=== PATIENT | female | born 1940 | race Caucasian/White ===

== ENCOUNTER 2019-07-13 15:58 | Observation (INO) ==
--- NOTE | 2019-07-13 16:24 | DR.SOBA ---
HPI Time Seen Time Seen by Provider: 07/13/19 16:14 Primary Care Physician Primary Care Physician: kira HPI Comment HPI Comment: SOB, wheezing Complaints Chief Complaint Doctors Comments: here w sister. She lives alone, has asthma. I think she may be a little demented. Not sure how long she has been like this. She thinks maybe a week. Has nebs and inhalers at home. No steroids per sister. Chief Complaint:: pt states" I BEEN WHEEZING AND SOB I'M COUGHING UP THICK SPUTUM" Reviewed Nurses Notes Reviewed: Yes Source History Provided: Patient and Family Member Mode of Arrival Mode of Arrival: Ambulatory Timing Onset of Chief Complaint: 07/10/19 Context Onset:: At Rest PE Risk Factors:: Immobilization History of:: Asthma; denies COPD and DVT/PE Currently on:: Inhaled Bronchodilators Prehospital Care:: None Modifying Factors Worsens:: Nothing Improves:: Nothing Associated Signs and Symptoms Associated Signs and Symptoms: Wheeze and Cough; denies Fever, Hemoptysis and Chest Pain If Cough Cough: Green PMH PMH Past Medical History: Yes Past Medical History: Anxiety, Asthma, Diabetes and Hypertension Past Surgical History: Yes Surgical History: Joint Replacement and Tonsillectomy Family History History of Family Medical Conditions: Yes Family Medical History: Diabetes Mellitus, Cancer and Hypertension Social History Does patient currently use any type of tobacco product: No Have you used tobacco products in the last 12 months: No Do you use any recreational Drugs:: No Lives With: Alone Lives Where: Home infectious screening In the last 2 months have you had wt loss of >10#?: NO Have you had fever, night sweats or hemotysis?: No Have you traveled outside the country in the last 6 months?: No Isolation: Standard ROS Review of Systems Constitutional: No Symptoms Reported; negative Fever ENTM: negative Nose Congestion Respiratoy: See HPI, Productive Cough, Short of Breath and Wheezing; negative Hemoptysis Cardiovascular: No Symptoms Reported Gastrointestinal/Abdominal: No Symptoms Reported Musculoskeletal: No Symptoms Reported Integumentary: No Symptoms Reported All Other Systems: Reviewed and Negative PE Vital Signs Vitals: Temperature 98.6 F Pulse Rate 104 Respiratory Rate 22 Blood Pressure 176/75 O2 Sat by Pulse Oximetry 92 General Limitations: Other (some dementia) General Appearance: Alert and Other (wheezing, dyspneic) Eyes Eye exam: Normal Appearance and EOMI; negative Conjunctival Injection ENT ENT Exam: Mucous Membranes Dry Neck Neck Exam: Normal Inspection and Full ROM; negative Meningismus and Lymphadenopathy Respiratory Respiratory Exam: Prolonged Expiratory Phase Respiratory Exam: Bilateral: Wheezing, Left: Wheezing, Right: Wheezing, Upper: Wheezing and Lower: Wheezing Cardiovascular Cardiovascular Exam: Regular Rate, Normal Rhythm and Normal Heart Sounds Abdominal Exam Abdominal Exam: Soft; negative Tenderness Extremities Extremities Exam: negative Edema and Calf Tenderness Back Back Exam: Normal Inspection Neurologic Neurological Exam: Alert and Oriented X3 Skin Skin Exam: Warm, Dry and Normal Color MDM Differential Diagnosis Differential Diagnosis: Asthma, Bronchitis, Pneumonia, Pulmonary embolism, Respiratory Failure and Respiratory Insufficiency ROR Labs Reviewed Laboratory Results Reviewed?: Yes Result Diagrams: 07/13/19 16:48 07/13/19 16:48 Laboratory: WBC 10.4 X10^3/uL (3.6-10.0) H 07/13/19 16:48 RBC 4.36 X10^6/uL (3.5-5.4) 07/13/19 16:48 Hgb 13.3 g/dL (12.0-16.0) 07/13/19 16:48 Hct 39.7 % (36.0-47.0) 07/13/19 16:48 MCV 91.2 fL (80.0-100.0) 07/13/19 16:48 MCH 30.6 pg (27.0-34.0) 07/13/19 16:48 MCHC 33.5 g/dL (33.0-35.0) 07/13/19 16:48 RDW 12.8 % (11.6-16.5) 07/13/19 16:48 Plt Count 339 X10^3/uL (150.0-450.0) 07/13/19 16:48 MPV 8.2 fL (7.4-11.0) 07/13/19 16:48 Neut % (Auto) 66.8 % (42.0-75.0) 07/13/19 16:48 Lymph % (Auto) 15.8 % (21.0-51.0) L 07/13/19 16:48 [place] % (Auto) 16.1 % (0.0-13.0) H 07/13/19 16:48 Eos % (Auto) 0.8 % (0.9-2.9) L 07/13/19 16:48 Baso % (Auto) 0.5 % (0.2-1.0) 07/13/19 16:48 Neut # (Auto) 7.0 x10^3/uL (2.2-4.8) H 07/13/19 16:48 Lymph # (Auto) 1.6 X10^3/uL (1.3-2.9) 07/13/19 16:48 [place] # (Auto) 1.7 x10^3/uL (0.3-0.8) H 07/13/19 16:48 Eos # (Auto) 0.1 x10^3/uL (0.0-0.2) 07/13/19 16:48 Baso # (Auto) 0.1 X10^3/uL (0.0-0.1) 07/13/19 16:48 Absolute Nucleated RBC 0.0 /100WBC 07/13/19 16:48 D-Dimer 1190 ng/mL (0-400) H* 07/13/19 16:48 Sample Site Rrad 07/13/19 17:04 ABG pH 7.420 (7.35-7.45) 07/13/19 17:04 ABG pCO2 43.0 mmHg (35.0-45.0) 07/13/19 17:04 ABG pO2 68.0 mmHg (80.0-100.0) L 07/13/19 17:04 ABG HCO3 27.9 mmol/L (22-26) H 07/13/19 17:04 ABG O2 Saturation 94.0 % (90-100) 07/13/19 17:04 ABG Base Excess 3.0 mmol/L (-2.0-2.0) H 07/13/19 17:04 Filippo Test Pos 07/13/19 17:04 A-a Gradient 78.0 mmHg 07/13/19 17:04 FiO2 28.0 07/13/19 17:04 Blood Gas Comments Pt maci well elj 07/13/19 17:04 Sodium 139 mmol/L (136-145) 07/13/19 16:48 Corrected Sodium 141 mmol/L (136-145) 07/13/19 16:48 Potassium 3.9 mmol/L (3.5-5.1) 07/13/19 16:48 Chloride 103 mmol/L (98-107) 07/13/19 16:48 Carbon Dioxide 26.3 mmol/L (21-32) 07/13/19 16:48 BUN 11 mg/dL (7-18) 07/13/19 16:48 Creatinine 1.16 mg/dL (0.55-1.02) H 07/13/19 16:48 Est GFR (MDRD) Af Amer 58 (>60) L 07/13/19 16:48 Est GFR (MDRD) Non-Af 48 (>60) L 07/13/19 16:48 Glucose 189 mg/dL (65-99) H 07/13/19 16:48 POC Glucose (mg/dL) 183 mg/dL (65-99) H 07/13/19 16:29 Calcium 11.9 mg/dL (8.5-10.1) H 07/13/19 16:48 Corrected Calcium 12.5 mg/dL (8.5-10.1) H 07/13/19 16:48 Magnesium 1.6 mg/dL (1.7-2.9) L 07/13/19 16:48 Total Bilirubin 0.50 mg/dL (0.2-1.0) 07/13/19 16:48 AST 43 Units/L (15-37) H 07/13/19 16:48 ALT 56 Units/L (12-78) 07/13/19 16:48 Alkaline Phosphatase 68 Units/L (46-116) 07/13/19 16:48 Creatine Kinase 109 Units/L (26-192) 07/13/19 16:48 CK-MB (CK-2) 1.4 ng/mL (0-4.0) 07/13/19 16:48 CK/CKMB % Calc 1.3 % (<4) 07/13/19 16:48 Troponin I < 0.02 ng/mL (0-1.5) 07/13/19 16:48 Total Protein 6.9 g/dL (6.4-8.2) 07/13/19 16:48 Albumin 3.2 g/dL (3.4-5.0) L 07/13/19 16:48 Globulin 3.7 g/dL (2.5-4.5) 07/13/19 16:48 Albumin/Globulin Ratio 0.9 Ratio (1.1-2.1) L 07/13/19 16:48 Other Results Comments: d-dimer high, Mg a little low. XRAY XRAY Interpreted by: Radiologist XRAY Findings: pCXR nothing acute EKG Rate: [address]: Normal Rhythm: NSR and ST Block: None Hypertrophy: None ST: Normal Opioid Opioid Risk Tool Age ([place] box if 16-45): No History of Preadolescent Sexual Abuse: No Total: 0 Total Score Risk Category: Low Risk Copyright: [facility] predicting aberrant behaviors Diagnosis Discharge Problem: Hypoxia Pneumonia Qualifiers: Pneumonia type: due to unspecified organism Laterality: bilateral Lung location: unspecified part of lung Qualified Code(s): J18.9 - Pneumonia, unspecified organism Asthma exacerbation Qualifiers: Asthma severity: moderate Asthma persistence: persistent Qualified Code(s): J45.41 - Moderate persistent asthma with (acute) exacerbation Instructions Forms: Excuse From Work Patient Portal ADDITIONAL NOTES Additional Notes Additional Notes: Pt to be admitted for PN, dyspnea, asthma Dr. Johnson
[2019-07-13] MEDS ORDERED: DUONEB 0.5 MG/3 MG (3 mL) NEB ONE ×2 (16:27→16:57)
[2019-07-13] MEDS ORDERED: SOLU-Medrol 125 MG VIAL IVP ONE (16:30)
[2019-07-13] MEDS ORDERED: SOLU-Medrol 125 MG VIAL ONE (16:59)
[2019-07-13 17:00] LABS: BASOPHILS # (AUTO) 0.1 X10^3/uL (0.0-0.1); BASOPHILS % (AUTO) 0.5 % (0.2-1.0); EOSINOPHILS # (AUTO) 0.1 x10^3/uL (0.0-0.2); EOSINOPHILS % (AUTO) 0.8 % (0.9-2.9); HEMATOCRIT 39.7 % (36.0-47.0); HEMOGLOBIN 13.3 g/dL (12.0-16.0); LYMPHOCYTES # (AUTO) 1.6 X10^3/uL (1.3-2.9); LYMPHOCYTES % (AUTO) 15.8 % (21.0-51.0); MEAN CORPUSCULAR HEMOGLOBIN 30.6 pg (27.0-34.0); MEAN CORPUSCULAR HGB CONC 33.5 g/dL (33.0-35.0); MEAN CORPUSCULAR VOLUME 91.2 fL (80.0-100.0); MEAN PLATELET VOLUME 8.2 fL (7.4-11.0); MONOCYTES # (AUTO) 1.7 x10^3/uL (0.3-0.8); MONOCYTES % (AUTO) 16.1 % (0.0-13.0); NEUTROPHILS % (AUTO) 66.8 % (42.0-75.0); PLATELET COUNT 339 X10^3/uL (150.0-450.0); RED BLOOD COUNT 4.36 X10^6/uL (3.5-5.4); RED CELL DISTRIBUTION WIDTH 12.8 % (11.6-16.5); WHITE BLOOD COUNT 10.4 X10^3/uL (3.6-10.0)
[2019-07-13 17:14] LABS: ABG ALLEN TEST POS; ABG HCO3 27.9 mmol/L (22-26)
[2019-07-13 17:23] LABS: BLOOD UREA NITROGEN 11 mg/dL (7-18); CALCIUM 11.9 mg/dL (8.5-10.1); CARBON DIOXIDE 26.3 mmol/L (21-32); CHLORIDE 103 mmol/L (98-107); COR NA(FOR HYPERGLY) 141 mmol/L (136-145); CREATININE 1.16 mg/dL (0.55-1.02); SODIUM 139 mmol/L (136-145); TROPONIN I < 0.02 ng/mL (0-1.5); eGFR NON BLACK RACES 48 (>60)
[2019-07-13 17:28] LABS: ALANINE AMINOTRANSFERASE 56 Units/L (12-78); ALBUMIN 3.2 g/dL (3.4-5.0); ALKALINE PHOSPHATASE 68 Units/L (46-116); ASPARTATE AMINO TRANSFERASE 43 Units/L (15-37); CKMB % 1.3 % (<4); COR CA(FOR HYPOALB) 12.5 mg/dL (8.5-10.1); CREATINE KINASE 109 Units/L (26-192); CREATINE KINASE MB 1.4 ng/mL (0-4.0); MAGNESIUM 1.6 mg/dL (1.7-2.9); TOTAL PROTEIN 6.9 g/dL (6.4-8.2)
--- NOTE | 2019-07-13 17:37 | RAD ---
HISTORY:Shortness of breathStudy: Single view chestComparison:NoneFindings:Single portable views limited by underpenetration. Nonspecific interstitial prominence is present. No focal infiltrate, effusion or pneumothorax identified.Cardiac silhouette is upper limits of normal.The soft tissues are intact .IMPRESSION:1. No acute cardiopulmonary abnormality.Electronically signed by: MANDEEP LIVINGSTON (Jul 13, 2019 17:33:45)
[2019-07-13] MEDS ORDERED: MAGNESIUM SULFATE 1 GRAM/100 mL PREMIX 1 G/100 ML BAG IV ONE (18:19)
[2019-07-13] MEDS ORDERED: MAGNESIUM SULFATE 50% INJ VIAL ONE (18:23)
[2019-07-13] MEDS ORDERED: NS 100 ML IV 100 ML IV ONE (18:23)
--- NOTE | 2019-07-13 18:56 | CT ---
HISTORYelevated ddimerSTUDYCTA CHEST W/WO CONTCOMPARISONNoneTECHNIQUEMultiple axial images of the chest were obtained from the thoracic inlet to the upper abdomen after the administration of IV contrast. Coronal sagittal reformatted 3 dimensional MIP images were also submitted utilizing CTA protocol. Dose reduction techniques including Automated Exposure Control (AEC) and adjustment of mA and kV were utilized.FINDINGSMildly enlarged size lymph nodes are seen within the prevascular and pretracheal spaces of the mediastinum. Mild pericardial thickening versus a small pericardial effusion are noted. Atherosclerotic changes are seen within the visualized coronary arteries and aorta. Timing of the contrast bolus is somewhat suboptimal. Allowing for streak artifact no definite large focal well circumscribed filling defects are appreciated within the main pulmonary arteries. Evaluation of the more distal branches is limited. Patchy airspace opacities are demonstrated bilaterally and may reflect atelectasis however multifocal infiltrate or other underlying process cannot be excluded. Recommend clinical correlation and short interval follow-up within 2-3 months for further evaluation. No CT evidence of pneumothorax or pleural effusion is identified. Visualized liver is prominent in appearance. Approximate 3.5 x 3.7 centimeter low-attenuation lesion is seen within the left adrenal possibly representing an adenoma. If no comparison studies are available follow-up nonemergent outpatient multiphase CT and/or MRI may be performed for further evaluation. Small calculi are seen within the visualized right kidney.IMPRESSIONNo definite CT evidence of pulmonary embolism appreciated as noted above.Patchy airspace opacities bilaterally as discussed above. Correlate clinically.Other findings as noted above.Electronically signed by: ADE CHAVIRA (Jul 13, 2019 18:54:29)
[2019-07-13] MEDS ORDERED: LEVAQUIN PREMIX IV 750 MG 750 MG/150 ML BAG IV SCH (20:00)
[2019-07-13] MEDS ORDERED: NS 1000 ML 1,000 ML ONE (20:06)
[2019-07-13] MEDS ORDERED: LEVAQUIN PREMIX IV 750 MG 750 MG/150 ML BAG IV ONE (20:06)
[2019-07-13] MEDS: NS 1000 ML 1,000 ML IV SCH (20:15)
[2019-07-13 21:41] VITALS: BMI 43.7
[2019-07-13] MEDS: HumuLIN R SC PRN (22:40)
[2019-07-13] MEDS: DUONEB 0.5 MG/3 MG (3 mL) NEB SCH (23:32)
[2019-07-14] MEDS: SOLU-Medrol 125 MG VIAL IVP SCH ×3 (00:10→12:55)
[2019-07-14] MEDS: NS 1000 ML 1,000 ML IV SCH ×2 (05:13→09:04)
[2019-07-14] MEDS: DUONEB 0.5 MG/3 MG (3 mL) NEB SCH (05:19)
[2019-07-14] MEDS: HumuLIN R SC PRN ×4 (06:14→20:59)
[2019-07-14 06:26] LABS: BASOPHILS % (AUTO) 0.2 % (0.2-1.0); HEMATOCRIT 40.9 % (36.0-47.0); HEMOGLOBIN 13.7 g/dL (12.0-16.0); LYMPHOCYTES # (AUTO) 1.5 X10^3/uL (1.3-2.9); LYMPHOCYTES % (AUTO) 14.1 % (21.0-51.0); MEAN CORPUSCULAR HEMOGLOBIN 30.7 pg (27.0-34.0); MEAN CORPUSCULAR HGB CONC 33.4 g/dL (33.0-35.0); MEAN CORPUSCULAR VOLUME 91.8 fL (80.0-100.0); MEAN PLATELET VOLUME 8.5 fL (7.4-11.0); MONOCYTES # (AUTO) 0.4 x10^3/uL (0.3-0.8); MONOCYTES % (AUTO) 3.7 % (0.0-13.0); NEUTROPHILS # (AUTO) 8.8 x10^3/uL (2.2-4.8); PLATELET COUNT 351 X10^3/uL (150.0-450.0); RED BLOOD COUNT 4.45 X10^6/uL (3.5-5.4); RED CELL DISTRIBUTION WIDTH 13.1 % (11.6-16.5); WHITE BLOOD COUNT 10.8 X10^3/uL (3.6-10.0)
[2019-07-14 07:03] LABS: CALCIUM 12.2 mg/dL (8.5-10.1); CARBON DIOXIDE 23.6 mmol/L (21-32); CREATININE 1.25 mg/dL (0.55-1.02); MAGNESIUM 1.6 mg/dL (1.7-2.9); TOTAL PROTEIN 8.2 g/dL (6.4-8.2)
[2019-07-14 08:51] LABS: ABG BASE EXCESS 0.1 mmol/L (-2.0-2.0); ABG HCO3 24.7 mmol/L (22-26)
[2019-07-14] MEDS: ZESTRIL TAB 10 MG PO SCH ×2 (09:04→09:06)
[2019-07-14] MEDS: EFFEXOR XR 150 MG CAP PO SCH ×2 (09:05→09:08)
[2019-07-14] MEDS: NORVASC TAB 10 MG PO SCH (09:05)
[2019-07-14] MEDS: LOVENOX INJ 40 MG SYR SC SCH (09:06)
[2019-07-14] MEDS ORDERED: TUSSIONEX PENNKINETIC SUSP PO PRN (09:06)
--- NOTE | 2019-07-14 09:15 | DR.H&P ---
H&P - History & Physical for Day of: H&P Date: 07/13/19 - Chief Complaint Chief Complaint: SOB - History of Present Illness History of Present Illness: PT IS 79 WF ER ADMISSION AFTER PRESENTING WITH CO SOB. PT HAS PMH OF ASTHMA AND REPORTS SHE HAS INHALERS AT HOME. PT SISTER IS NEXT OF KIN, REPORTING PT HAS SOME DEGREE OF DEMENTIA. PT REPORTS SHE HAS BEEN HAVING SOB FOR SEVERAL WEEKS. PT HAD "HEART TESTS" AT [facility] IN [place] WITH PENDING F/U. PT HAS PMH OF DM, HTN, OA. PT ADMITTED FOR TREATMENT OF SOB, PNEUMONIA. - Past Medical History Past Medical History: Hypertension, Diabetes, Anxiety, Asthma - Past Surgical History Surgical History: Joint Replacement, Tonsillectomy - Family History Family Medical History: Diabetes Mellitus, Cancer, Hypertension - Social History Does patient currently use any type of tobacco product: No Have you used tobacco products in the last 12 months: No Type of Tobacco Use: None Alcohol Use: None Drug Use: None - Medications Home Medications: No Known Drug Allergies Allergy (Verified 07/13/19 16:07) CONTINUE taking the following medications amlodipine 10 mg PO DAILY 07/13/19 [History] bisoprolol-hydrochlorothiazide 1 tab PO DAILY 07/13/19 [History] lisinopril 40 mg PO DAILY 07/13/19 [History] loratadine 10 mg PO DAILY 07/13/19 [History] metformin 1,000 mg PO BID 07/13/19 [History] montelukast 1 mg PO DAILY 07/13/19 [History] naproxen 500 mg PO BID 07/13/19 [History] pioglitazone 15 mg PO DAILY 07/13/19 [History] venlafaxine 150 mg PO DAILY 07/13/19 [History] - Review of Systems Constitutional: Malaise Eyes: No Symptoms Reported ENT: No Symptoms Reported Respiratory: Cough, Shortness of Breath, Sputum, Wheezing Cardiovascular: denies: Edema Gastrointestinal: No Symptoms Reported Genitourinary: No Symptoms Reported Musculoskeletal: No Symptoms Reported Skin: No Symptoms Reported Neurological: No Symptoms Reported - Physical Exam Vital Signs: Temperature 98.3 F Pulse Rate [Left Brachial] 94 Pulse Rate 103 Respiratory Rate 20 Blood Pressure [Left Arm] 171/79 Blood Pressure 176/75 O2 Sat by Pulse Oximetry 95 Oriented: Person, Place Eyes: Normal Ear: Normal Nose: Normal Throat: Dry Respiratory: Wheezes Throughout, RLL Diminished, LLL Diminished Cardiovascular: Normal : Normal Auscultation: Bowel Sounds: Normal Palpation: Normal Tenderness: Normal Skin: Normal Musculoskeletal: Left, Ankle, Tender. negative: Swelling Psychiatric: Anxiety Affect: Anxious Speech Pattern: Clear, Appropriate (POOR HISTORIAN, CONFUSION REGARDING EVENTS UP TO ADMISSION) - Assessment/Plan (1) Pneumonia Qualifiers: Pneumonia type: due to unspecified organism Laterality: bilateral Lung location: unspecified part of lung Qualified Code(s): J18.9 - Pneumonia, unspecified organism Status: Acute Plan: ADMIT, [facility] PROTOCOL. IV SOLU MEDROL GIVEN IN ER, DUO NEBS. RESP THERAPY, SPUTUM CUTLURE. IV ATBS, CARDIAC MONITORING AND EKG. ABG ON ADMISSION (2) Asthma exacerbation Qualifiers: Asthma severity: moderate Asthma persistence: persistent Qualified C ode(s): J45.41 - Moderate persistent asthma with (acute) exacerbation Status: Acute (3) Diabetes Status: Acute (4) Hypertension Status: Acute - Allergies Allergies/Adverse Reactions: Allergies Allergy/AdvReac Type Severity Reaction Status Date / Time No Known Drug Allergies Allergy Verified 07/13/19 16:07
--- NOTE | 2019-07-14 09:21 | PCM.PROG ---
Progress Note - Progress Note for Day of Date of Exam: 07/14/19 - Subjective Subjective: PT IS 79 WF ER ADMISSION LATE SHASHANK EVENING WITH PNEUMONIA AND ASTHMA EXACERBATION. PT IS CURRENTLY RECEIVING IV STEROIDS, DUO NEBS, IV ATBX. PT ENCOURAGED TO COLLECT A SPUTUM SPECIMEN. PT CONTINUES WITH CO COUGH. PT HAD DIFFUSE EXPIRATORY WHEEZING ON EXAM, NO INSPIRATORY WHEEZING THIS AM. PLAN TO ADD BUDESONIDE NEB AND ROBITUSSIN. HOME MEDICATION RESUMED. PT ON SSI COVERAGE TO BS. - Past Medical Family Social History Past Med/Fam/Surg Hx: No changes since H&P Allergies: Allergies No Known Drug Allergies Allergy (Verified 07/13/19 16:07) - Vital Signs and I&O's Vital Signs: Temperature 98.3 F Pulse Rate [Left Brachial] 94 Pulse Rate 103 Respiratory Rate 20 Blood Pressure [Left Arm] 171/79 Blood Pressure 176/75 O2 Sat by Pulse Oximetry 95 Intake and Output: Intake & Output 07/11/19 07/12/19 07/13/19 07/14/19 11:59 11:59 11:59 11:59 Intake Total 1999 Balance 1999 - Physical Exam Oriented: Person, Place Eyes: Normal Ear: Normal Nose: Normal Throat: Dry Respiratory: Wheezes, Rhonchi Cardiovascular: Normal : Normal Auscultation: Bowel Sounds: Normal Tenderness: Normal Skin: Normal Musculoskeletal: Left, Ankle, Tender. negative: Swelling Psychiatric: Anxiety Affect: Anxious Speech Pattern: Clear, Appropriate (POOR HISTORIAN, CONFUSION REGARDING EVENTS UP TO ADMISSION) - Laboratory and Diagnostics Result Diagrams: 07/14/19 05:55 07/14/19 05:55 Labs: Laboratory WBC 10.8 X10^3/uL (3.6-10.0) H 07/14/19 05:55 RBC 4.45 X10^6/uL (3.5-5.4) 07/14/19 05:55 Hgb 13.7 g/dL (12.0-16.0) 07/14/19 05:55 Hct 40.9 % (36.0-47.0) 07/14/19 05:55 MCV 91.8 fL (80.0-100.0) 07/14/19 05:55 MCH 30.7 pg (27.0-34.0) 07/14/19 05:55 MCHC 33.4 g/dL (33.0-35.0) 07/14/19 05:55 RDW 13.1 % (11.6-16.5) 07/14/19 05:55 Plt Count 351 X10^3/uL (150.0-450.0) 07/14/19 05:55 MPV 8.5 fL (7.4-11.0) 07/14/19 05:55 Neut % (Auto) 82.0 % (42.0-75.0) H 07/14/19 05:55 Lymph % (Auto) 14.1 % (21.0-51.0) L 07/14/19 05:55 [place] % (Auto) 3.7 % (0.0-13.0) 07/14/19 05:55 Eos % (Auto) 0.0 % (0.9-2.9) L 07/14/19 05:55 Baso % (Auto) 0.2 % (0.2-1.0) 07/14/19 05:55 Neut # (Auto) 8.8 x10^3/uL (2.2-4.8) H 07/14/19 05:55 Lymph # (Auto) 1.5 X10^3/uL (1.3-2.9) 07/14/19 05:55 [place] # (Auto) 0.4 x10^3/uL (0.3-0.8) 07/14/19 05:55 Eos # (Auto) 0.0 x10^3/uL (0.0-0.2) 07/14/19 05:55 Baso # (Auto) 0.0 X10^3/uL (0.0-0.1) 07/14/19 05:55 Absolute Nucleated RBC 0.0 /100WBC 07/14/19 05:55 D-Dimer 1190 ng/mL (0-400) H* 07/13/19 16:48 Sample Site Left brachial 07/14/19 08:43 ABG pH 7.410 (7.35-7.45) 07/14/19 08:43 ABG pCO2 39.0 mmHg (35.0-45.0) 07/14/19 08:43 ABG pO2 67.0 mmHg (80.0-100.0) L 07/14/19 08:43 ABG HCO3 24.7 mmol/L (22-26) 07/14/19 08:43 ABG O2 Saturation 93.0 % (90-100) 07/14/19 08:43 ABG Base Excess 0.1 mmol/L (-2.0-2.0) 07/14/19 08:43 Filippo Test Na 07/14/19 08:43 A-a Gradient 34.0 mmHg 07/14/19 08:43 FiO2 21.0 07/14/19 08:43 Blood Gas Comments Alhaji well aw 07/14/19 08:43 Sodium 137 mmol/L (136-145) 07/14/19 05:55 Corrected Sodium 142 mmol/L (136-145) 07/14/19 05:55 Potassium 4.1 mmol/L (3.5-5.1) 07/14/19 05:55 Chloride 101 mmol/L (98-107) 07/14/19 05:55 Carbon Dioxide 23.6 mmol/L (21-32) 07/14/19 05:55 BUN 14 mg/dL (7-18) 07/14/19 05:55 Creatinine 1.25 mg/dL (0.55-1.02) H 07/14/19 05:55 Est GFR (MDRD) Af Amer 53 (>60) L 07/14/19 05:55 Est GFR (MDRD) Non-Af 44 (>60) L 07/14/19 05:55 Glucose 298 mg/dL (65-99) H 07/14/19 05:55 POC Glucose (mg/dL) 183 mg/dL (65-99) H 07/13/19 16:29 Calcium 12.2 mg/dL (8.5-10.1) H 07/14/19 05:55 Corrected Calcium 13.0 mg/dL (8.5-10.1) H 07/14/19 05:55 Magnesium 1.6 mg/dL (1.7-2.9) L 07/14/19 05:55 Total Bilirubin 0.40 mg/dL (0.2-1.0) 07/14/19 05:55 AST 64 Units/L (15-37) H 07/14/19 05:55 ALT 65 Units/L (12-78) 07/14/19 05:55 Alkaline Phosphatase 67 Units/L (46-116) 07/14/19 05:55 Creatine Kinase 109 Units/L (26-192) 07/13/19 16:48 CK-MB (CK-2) 1.4 ng/mL (0-4.0) 07/13/19 16:48 CK/CKMB % Calc 1.3 % (<4) 07/13/19 16:48 Troponin I < 0.02 ng/mL (0-1.5) 07/13/19 16:48 Total Protein 8.2 g/dL (6.4-8.2) 07/14/19 05:55 Albumin 3.0 g/dL (3.4-5.0) L 07/14/19 05:55 Globulin 5.2 g/dL (2.5-4.5) H 07/14/19 05:55 Albumin/Globulin Ratio 0.6 Ratio (1.1-2.1) L 07/14/19 05:55 - Plan (1) Pneumonia Status: Acute Qualifiers: Pneumonia type: due to unspecified organism Laterality: bilateral Lung location: unspecified part of lung Qualified Code(s): J18.9 - Pneumonia, unspecified organism Plan: [facility] PROT[facility]OL. IV SOLU MEDROL GIVEN IN ER, DUO NEBS. RESP THERAPY, SPUTUM CUTLURE. IV ATBS, CARDIAC MONITORING AND EKG. ABG ON ADMISSION (2) Asthma exacerbation Status: Acute Qualifiers: Asthma severity: moderate Asthma persistence: persistent Qualified Code(s): J45.41 - Moderate persistent asthma with (acute) exacerbation (3) Diabetes Status: Acute (4) Hypertension Status: Acute
[2019-07-14] MEDS ORDERED: PULMICORT NEB TX 0.5 MG NEB ONE (09:44)
[2019-07-14] MEDS: PULMICORT NEB TX 0.5 MG NEB SCH ×2 (09:50→20:33)
[2019-07-14] MEDS: ROBITUSSIN DM PO SCH ×4 (12:54→20:58)
[2019-07-14] MEDS: CLARITIN PO SCH (12:59)
[2019-07-14] MEDS: XOPENEX 1.25 MG/3 ML NEBULE NEB SCH ×3 (13:49→20:33)
[2019-07-14] MEDS ORDERED: LEVAQUIN PREMIX IV 750 MG 750 MG/150 ML BAG IV SCH (21:00)
[2019-07-15] MEDS: NS 1000 ML 1,000 ML IV SCH (01:16)
[2019-07-15] MEDS ORDERED: ULTRAM PO PRN (01:47)
[2019-07-15] MEDS ORDERED: BISOPROLOL HYDROCHLOROTHIAZIDE PO SCH (09:00)
[2019-07-15] MEDS: ZESTRIL TAB 10 MG PO SCH (10:49)
[2019-07-15] MEDS: ROBITUSSIN DM PO SCH ×4 (10:49→21:03)
[2019-07-15] MEDS: NORVASC TAB 10 MG PO SCH (10:49)
[2019-07-15] MEDS: ZEBETA TAB 5 MG PO SCH (10:49)
[2019-07-15] MEDS: ZIAC 5/6.25 MG PO SCH (10:50)
[2019-07-15] MEDS: CLARITIN PO SCH (10:50)
[2019-07-15] MEDS: LOVENOX INJ 40 MG SYR SC SCH (10:51)
[2019-07-15] MEDS: EFFEXOR XR 150 MG CAP PO SCH (10:51)
[2019-07-15 11:30] LABS: BASOPHILS % (AUTO) 0.2 % (0.2-1.0); HEMATOCRIT 39.7 % (36.0-47.0); HEMOGLOBIN 12.7 g/dL (12.0-16.0); LYMPHOCYTES # (AUTO) 1.6 X10^3/uL (1.3-2.9); LYMPHOCYTES % (AUTO) 11.3 % (21.0-51.0); MEAN CORPUSCULAR HEMOGLOBIN 29.2 pg (27.0-34.0); MEAN CORPUSCULAR VOLUME 91.3 fL (80.0-100.0); MONOCYTES # (AUTO) 1.8 x10^3/uL (0.3-0.8); MONOCYTES % (AUTO) 12.9 % (0.0-13.0); NEUTROPHILS # (AUTO) 10.5 x10^3/uL (2.2-4.8); NEUTROPHILS % (AUTO) 75.6 % (42.0-75.0); PLATELET COUNT 375 X10^3/uL (150.0-450.0); RED BLOOD COUNT 4.35 X10^6/uL (3.5-5.4); RED CELL DISTRIBUTION WIDTH 12.9 % (11.6-16.5); WHITE BLOOD COUNT 13.9 X10^3/uL (3.6-10.0)
[2019-07-15 11:41] LABS: ALBUMIN 2.9 g/dL (3.4-5.0); CARBON DIOXIDE 24.8 mmol/L (21-32); COR CA(FOR HYPOALB) 13.4 mg/dL (8.5-10.1); CREATININE 1.18 mg/dL (0.55-1.02); TOTAL PROTEIN 7.2 g/dL (6.4-8.2)
[2019-07-15 11:51] LABS: LACTIC ACID 1.2 mmol/L (0.4-2.0)
[2019-07-15 11:57] LABS: CALCIUM 12.5 mg/dL (8.5-10.1)
--- NOTE | 2019-07-15 12:03 | CT ---
HISTORYAltered mental statusSTUDYCT of the brain without contrastCOMPARISONNoneA noncontrast CT of the head is performed in the axial plane and is reconstructed with multiplanar imaging techniques.FINDINGSThere is no intracranial hemorrhage or extra-axial hematoma. There is no mass effect shift or evidence of cerebral edema. Age related cortical volume loss is evident. The ventricular size is normal for age and relative to the degree of cortical volume loss. Mild, patchy periventricular and subcortical white matter hypoattenuation are observed, consistent with chronic small vessel ischemic changes. Atherosclerotic calcifications are associated with the cavernous ICA segments. Mild vertebral basilar dolichoectasia is likely associated with longstanding hypertension. There is no evidence of an acute stage large artery territorial infarct on the initial CT of the head. The calvarium is intact. The imaged paranasal sinuses and mastoid air cells are predominantly clear.IMPRESSIONNo acute intracranial abnormalities.Mild degenerative white matter changes of the supratentorial brain most likely related to chronic small vessel ischemia.Age related cortical volume loss and other incidental findings as above.Electronically signed by: LALITHA ANN (Jul 15, 2019 12:02:04)
[2019-07-15] MEDS ORDERED: LASIX IVP ONE (13:34)
[2019-07-15] MEDS: XOPENEX 1.25 MG/3 ML NEBULE NEB SCH ×4 (13:55→20:20)
[2019-07-15] MEDS: PULMICORT NEB TX 0.5 MG NEB SCH ×2 (13:56→20:20)
[2019-07-15] MEDS ORDERED: K-DUR TAB 20 MEQ PO SCH (14:00)
--- NOTE | 2019-07-15 14:31 | RAD ---
CHEST, 1 VIEWHISTORY: PNEUMONIA, ASTHMAStudy: Single view of the chest.Comparison:NoneFindings:The cardiomediastinal silhouette is normal.No focal consolidations, pleural effusions or pneumothorax. Osseous structures demonstrate no acute abnormality.IMPRESSION:1. No acute cardiopulmonary process.Electronically signed by: CLAIRE LYONS (Jul 15, 2019 14:30:37)
[2019-07-15 14:55] LABS: FREE T4 (FREE THYROXINE) 1.23 ng/dL (0.76-1.46); TSH (3RD GENERATION) 1.053 uIU/mL (0.358-3.74)
[2019-07-15] MEDS: NS 1/2 1000 ML IV 1,000 ML IV SCH (16:18)
[2019-07-15] MEDS ORDERED: NS 1/2 1000 ML IV 1,000 ML IV ONE (16:18)
[2019-07-15] MEDS ORDERED: LASIX IVP NR (17:00)
[2019-07-15] MEDS ORDERED: K-DUR TAB 20 MEQ PO PRN (19:40)
[2019-07-15] MEDS ORDERED: POTASSIUM CHL 60 MEQ/NS 0.45% 500 ML IV PRN (19:40)
[2019-07-15] MEDS ORDERED: MAGNESIUM SULFATE 1 GRAM/100 mL PREMIX 1 GM/100 ML BAG IV PRN (19:40)
[2019-07-15] MEDS ORDERED: POTASSIUM CHLORIDE LIQ 20 MEQ UDC PO PRN (19:40)
[2019-07-15] MEDS ORDERED: KLOR-CON PO PRN (19:40)
[2019-07-15] MEDS ORDERED: MICRO K EXTEN CAP 10 MEQ PO PRN (19:40)
[2019-07-15] MEDS ORDERED: POTASSIUM CHL 40 MEQ/NS 0.45% 500 ML IV PRN (19:40)
[2019-07-15] MEDS ORDERED: K-RIDER 10 MEQ/NS 100 ML 10 MEQ/100 ML BAG IV PRN (19:40)
[2019-07-15] MEDS ORDERED: RESTORIL CAP 15 MG PO PRN (19:52)
[2019-07-15] MEDS: HumuLIN R SC PRN (21:04)
[2019-07-15] MEDS: SINGULAIR TAB 10 MG PO SCH (21:04)
[2019-07-16] MEDS: NS 1/2 1000 ML IV 1,000 ML IV SCH (03:53)
[2019-07-16 06:58] LABS: BASOPHILS % (AUTO) 0.4 % (0.2-1.0); EOSINOPHILS % (AUTO) 0.4 % (0.9-2.9); HEMATOCRIT 40.5 % (36.0-47.0); HEMOGLOBIN 13.5 g/dL (12.0-16.0); LYMPHOCYTES % (AUTO) 20.4 % (21.0-51.0); MEAN CORPUSCULAR HEMOGLOBIN 30.6 pg (27.0-34.0); MEAN CORPUSCULAR HGB CONC 33.4 g/dL (33.0-35.0); MEAN CORPUSCULAR VOLUME 91.7 fL (80.0-100.0); MEAN PLATELET VOLUME 8.1 fL (7.4-11.0); MONOCYTES # (AUTO) 1.3 x10^3/uL (0.3-0.8); MONOCYTES % (AUTO) 13.2 % (0.0-13.0); NEUTROPHILS # (AUTO) 6.3 x10^3/uL (2.2-4.8); NEUTROPHILS % (AUTO) 65.6 % (42.0-75.0); PLATELET COUNT 388 X10^3/uL (150.0-450.0); RED BLOOD COUNT 4.41 X10^6/uL (3.5-5.4); RED CELL DISTRIBUTION WIDTH 13.3 % (11.6-16.5); WHITE BLOOD COUNT 9.5 X10^3/uL (3.6-10.0)
[2019-07-16 07:18] LABS: ALBUMIN 2.9 g/dL (3.4-5.0); CALCIUM 12.3 mg/dL (8.5-10.1); CARBON DIOXIDE 29.9 mmol/L (21-32); COR CA(FOR HYPOALB) 13.2 mg/dL (8.5-10.1); CREATININE 1.31 mg/dL (0.55-1.02); MAGNESIUM 1.8 mg/dL (1.7-2.9); TOTAL PROTEIN 7.1 g/dL (6.4-8.2)
[2019-07-16 07:33] LABS: BAND NEUTROPHILS % 5 % (0-10); PLATELET MORPHOLOGY COMMENT NORMAL (NORMAL)
[2019-07-16] MEDS: ROBITUSSIN DM PO SCH ×4 (08:39→21:09)
[2019-07-16] MEDS: ZEBETA TAB 5 MG PO SCH (08:40)
[2019-07-16] MEDS: CLARITIN PO SCH (08:40)
[2019-07-16] MEDS: NORVASC TAB 10 MG PO SCH (08:40)
[2019-07-16] MEDS: EFFEXOR XR 150 MG CAP PO SCH (08:40)
[2019-07-16] MEDS: ZESTRIL TAB 10 MG PO SCH (08:41)
[2019-07-16] MEDS: ZIAC 5/6.25 MG PO SCH (08:41)
[2019-07-16] MEDS: LOVENOX INJ 40 MG SYR SC SCH (08:46)
[2019-07-16] MEDS ORDERED: LEVAQUIN PREMIX IV 750 MG 750 MG/150 ML BAG IV SCH (12:00)
[2019-07-16] MEDS: HumuLIN R SC PRN ×3 (12:05→21:09)
[2019-07-16] MEDS: CRESTOR TAB 10 MG PO SCH (21:08)
[2019-07-16] MEDS: SINGULAIR TAB 10 MG PO SCH (21:08)
[2019-07-16] MEDS: PULMICORT NEB TX 0.5 MG NEB SCH (22:09)
[2019-07-16] MEDS: XOPENEX 1.25 MG/3 ML NEBULE NEB SCH (22:09)
[2019-07-17 06:19] LABS: BASOPHILS # (AUTO) 0.1 X10^3/uL (0.0-0.1); BASOPHILS % (AUTO) 0.7 % (0.2-1.0); EOSINOPHILS # (AUTO) 0.2 x10^3/uL (0.0-0.2); EOSINOPHILS % (AUTO) 1.7 % (0.9-2.9); HEMATOCRIT 40.7 % (36.0-47.0); HEMOGLOBIN 13.5 g/dL (12.0-16.0); LYMPHOCYTES # (AUTO) 2.4 X10^3/uL (1.3-2.9); LYMPHOCYTES % (AUTO) 21.7 % (21.0-51.0); MEAN CORPUSCULAR HEMOGLOBIN 30.5 pg (27.0-34.0); MEAN CORPUSCULAR HGB CONC 33.1 g/dL (33.0-35.0); MEAN CORPUSCULAR VOLUME 92.2 fL (80.0-100.0); MONOCYTES # (AUTO) 1.2 x10^3/uL (0.3-0.8); MONOCYTES % (AUTO) 11.1 % (0.0-13.0); NEUTROPHILS # (AUTO) 7.3 x10^3/uL (2.2-4.8); NEUTROPHILS % (AUTO) 64.8 % (42.0-75.0); PLATELET COUNT 410 X10^3/uL (150.0-450.0); RED BLOOD COUNT 4.41 X10^6/uL (3.5-5.4); RED CELL DISTRIBUTION WIDTH 13.3 % (11.6-16.5); WHITE BLOOD COUNT 11.2 X10^3/uL (3.6-10.0)
[2019-07-17 06:25] LABS: ALANINE AMINOTRANSFERASE 71 Units/L (12-78); ALBUMIN 2.9 g/dL (3.4-5.0); ALKALINE PHOSPHATASE 56 Units/L (46-116); ASPARTATE AMINO TRANSFERASE 48 Units/L (15-37); BLOOD UREA NITROGEN 25 mg/dL (7-18); CALCIUM 11.9 mg/dL (8.5-10.1); CARBON DIOXIDE 30.3 mmol/L (21-32); CHLORIDE 108 mmol/L (98-107); CHOL/HDL RATIO 4.5 (0.0-5.0); CHOLESTEROL 144 mg/dL (0-200); COR CA(FOR HYPOALB) 12.8 mg/dL (8.5-10.1); COR NA(FOR HYPERGLY) 145 mmol/L (136-145); CREATININE 1.13 mg/dL (0.55-1.02); HDL CHOLESTEROL 32 mg/dL (40-60); SODIUM 143 mmol/L (136-145); TOTAL PROTEIN 7.3 g/dL (6.4-8.2); TRIGLYCERIDES 122 mg/dL (0-150); eGFR NON BLACK RACES 50 (>60)
[2019-07-17] MEDS: XOPENEX 1.25 MG/3 ML NEBULE NEB SCH ×5 (08:46→20:10)
[2019-07-17] MEDS: PULMICORT NEB TX 0.5 MG NEB SCH ×3 (08:46→20:10)
[2019-07-17] MEDS: EFFEXOR XR 150 MG CAP PO SCH (09:30)
[2019-07-17] MEDS: CLARITIN PO SCH (09:30)
[2019-07-17] MEDS: LEVAQUIN TAB 750 MG PO SCH (09:31)
[2019-07-17] MEDS: LOVENOX INJ 40 MG SYR SC SCH (09:31)
[2019-07-17] MEDS: NORVASC TAB 10 MG PO SCH (09:31)
[2019-07-17] MEDS: ZEBETA TAB 5 MG PO SCH (09:32)
[2019-07-17] MEDS: ZIAC 5/6.25 MG PO SCH (09:32)
[2019-07-17] MEDS: ZESTRIL TAB 10 MG PO SCH (09:32)
[2019-07-17] MEDS: ROBITUSSIN DM PO SCH ×4 (09:32→20:25)
[2019-07-17] MEDS: HumuLIN R SC PRN ×2 (13:03→20:26)
[2019-07-17] MEDS: CRESTOR TAB 10 MG PO SCH (20:25)
[2019-07-17] MEDS: SINGULAIR TAB 10 MG PO SCH (20:25)
[2019-07-18 06:19] LABS: BASOPHILS % (AUTO) 0.5 % (0.2-1.0); EOSINOPHILS # (AUTO) 0.3 x10^3/uL (0.0-0.2); EOSINOPHILS % (AUTO) 2.7 % (0.9-2.9); HEMATOCRIT 39.5 % (36.0-47.0); HEMOGLOBIN 13.1 g/dL (12.0-16.0); LYMPHOCYTES # (AUTO) 1.9 X10^3/uL (1.3-2.9); LYMPHOCYTES % (AUTO) 19.7 % (21.0-51.0); MEAN CORPUSCULAR HEMOGLOBIN 30.9 pg (27.0-34.0); MEAN CORPUSCULAR HGB CONC 33.2 g/dL (33.0-35.0); MEAN PLATELET VOLUME 8.4 fL (7.4-11.0); MONOCYTES # (AUTO) 0.9 x10^3/uL (0.3-0.8); MONOCYTES % (AUTO) 9.1 % (0.0-13.0); NEUTROPHILS # (AUTO) 6.5 x10^3/uL (2.2-4.8); PLATELET COUNT 316 X10^3/uL (150.0-450.0); RED BLOOD COUNT 4.25 X10^6/uL (3.5-5.4); WHITE BLOOD COUNT 9.5 X10^3/uL (3.6-10.0)
[2019-07-18 06:44] LABS: ALANINE AMINOTRANSFERASE 54 Units/L (12-78); ALBUMIN 2.5 g/dL (3.4-5.0); ALKALINE PHOSPHATASE 49 Units/L (46-116); ASPARTATE AMINO TRANSFERASE 38 Units/L (15-37); BLOOD UREA NITROGEN 22 mg/dL (7-18); CALCIUM 10.7 mg/dL (8.5-10.1); CARBON DIOXIDE 28.8 mmol/L (21-32); CHLORIDE 107 mmol/L (98-107); COR CA(FOR HYPOALB) 11.9 mg/dL (8.5-10.1); COR NA(FOR HYPERGLY) 143 mmol/L (136-145); SODIUM 141 mmol/L (136-145); TOTAL PROTEIN 6.3 g/dL (6.4-8.2); eGFR NON BLACK RACES 57 (>60)
[2019-07-18] MEDS: XOPENEX 1.25 MG/3 ML NEBULE NEB SCH ×4 (09:28→20:25)
[2019-07-18] MEDS: PULMICORT NEB TX 0.5 MG NEB SCH ×2 (09:28→20:25)
[2019-07-18] MEDS: ROBITUSSIN DM PO SCH ×4 (09:38→20:47)
[2019-07-18] MEDS: LOVENOX INJ 40 MG SYR SC SCH (09:38)
[2019-07-18] MEDS: ZESTRIL TAB 10 MG PO SCH (09:39)
[2019-07-18] MEDS: EFFEXOR XR 150 MG CAP PO SCH (09:39)
[2019-07-18] MEDS: LEVAQUIN TAB 750 MG PO SCH (09:39)
[2019-07-18] MEDS: ZEBETA TAB 5 MG PO SCH (09:39)
[2019-07-18] MEDS: CLARITIN PO SCH (09:40)
[2019-07-18] MEDS: ZIAC 5/6.25 MG PO SCH (09:40)
[2019-07-18] MEDS: NORVASC TAB 10 MG PO SCH (09:40)
[2019-07-18] MEDS: HumuLIN R SC PRN ×2 (12:02→20:48)
[2019-07-18] MEDS: CRESTOR TAB 10 MG PO SCH (20:47)
[2019-07-18] MEDS: SINGULAIR TAB 10 MG PO SCH (20:47)
[2019-07-19] MEDS: HumuLIN R SC PRN ×4 (05:43→20:51)
[2019-07-19 06:06] LABS: BASOPHILS # (AUTO) 0.1 X10^3/uL (0.0-0.1); BASOPHILS % (AUTO) 0.7 % (0.2-1.0); EOSINOPHILS # (AUTO) 0.2 x10^3/uL (0.0-0.2); EOSINOPHILS % (AUTO) 2.3 % (0.9-2.9); HEMATOCRIT 39.1 % (36.0-47.0); HEMOGLOBIN 13.1 g/dL (12.0-16.0); LYMPHOCYTES # (AUTO) 1.7 X10^3/uL (1.3-2.9); LYMPHOCYTES % (AUTO) 18.3 % (21.0-51.0); MEAN CORPUSCULAR HEMOGLOBIN 30.7 pg (27.0-34.0); MEAN CORPUSCULAR HGB CONC 33.5 g/dL (33.0-35.0); MEAN CORPUSCULAR VOLUME 91.8 fL (80.0-100.0); MONOCYTES # (AUTO) 0.7 x10^3/uL (0.3-0.8); MONOCYTES % (AUTO) 7.4 % (0.0-13.0); NEUTROPHILS # (AUTO) 6.7 x10^3/uL (2.2-4.8); NEUTROPHILS % (AUTO) 71.3 % (42.0-75.0); PLATELET COUNT 351 X10^3/uL (150.0-450.0); RED BLOOD COUNT 4.25 X10^6/uL (3.5-5.4); RED CELL DISTRIBUTION WIDTH 12.7 % (11.6-16.5); WHITE BLOOD COUNT 9.4 X10^3/uL (3.6-10.0)
[2019-07-19 06:17] LABS: ALANINE AMINOTRANSFERASE 47 Units/L (12-78); ALBUMIN 2.6 g/dL (3.4-5.0); ALKALINE PHOSPHATASE 51 Units/L (46-116); ASPARTATE AMINO TRANSFERASE 28 Units/L (15-37); BLOOD UREA NITROGEN 19 mg/dL (7-18); CALCIUM 10.9 mg/dL (8.5-10.1); CARBON DIOXIDE 28.7 mmol/L (21-32); CHLORIDE 105 mmol/L (98-107); COR NA(FOR HYPERGLY) 141 mmol/L (136-145); CREATININE 1.09 mg/dL (0.55-1.02); SODIUM 138 mmol/L (136-145); TOTAL PROTEIN 6.5 g/dL (6.4-8.2); eGFR NON BLACK RACES 52 (>60)
[2019-07-19] MEDS: ZESTRIL TAB 10 MG PO SCH (09:00)
[2019-07-19] MEDS: LOVENOX INJ 40 MG SYR SC SCH (09:00)
[2019-07-19] MEDS: ROBITUSSIN DM PO SCH ×4 (09:01→20:39)
[2019-07-19] MEDS: EFFEXOR XR 150 MG CAP PO SCH (09:01)
[2019-07-19] MEDS: NORVASC TAB 10 MG PO SCH (09:01)
[2019-07-19] MEDS: LEVAQUIN TAB 750 MG PO SCH (09:01)
[2019-07-19] MEDS: CLARITIN PO SCH (09:02)
[2019-07-19] MEDS: ZEBETA TAB 5 MG PO SCH (09:02)
[2019-07-19] MEDS: ZIAC 5/6.25 MG PO SCH (09:02)
[2019-07-19] MEDS: XOPENEX 1.25 MG/3 ML NEBULE NEB SCH ×4 (09:22→20:51)
[2019-07-19] MEDS: PULMICORT NEB TX 0.5 MG NEB SCH ×2 (09:22→20:50)
[2019-07-19] MEDS ORDERED: COLACE CAP 100 MG PO PRN (19:48)
[2019-07-19] MEDS: CRESTOR TAB 10 MG PO SCH (20:38)
[2019-07-19] MEDS: SINGULAIR TAB 10 MG PO SCH (20:39)
[2019-07-20] MEDS: HumuLIN R SC PRN ×2 (05:45→11:54)
[2019-07-20 06:18] LABS: BASOPHILS # (AUTO) 0.1 X10^3/uL (0.0-0.1); BASOPHILS % (AUTO) 0.8 % (0.2-1.0); EOSINOPHILS # (AUTO) 0.2 x10^3/uL (0.0-0.2); EOSINOPHILS % (AUTO) 2.4 % (0.9-2.9); HEMATOCRIT 39.9 % (36.0-47.0); HEMOGLOBIN 13.2 g/dL (12.0-16.0); LYMPHOCYTES % (AUTO) 21.3 % (21.0-51.0); MEAN CORPUSCULAR HEMOGLOBIN 30.5 pg (27.0-34.0); MEAN CORPUSCULAR HGB CONC 33.2 g/dL (33.0-35.0); MEAN CORPUSCULAR VOLUME 91.8 fL (80.0-100.0); MEAN PLATELET VOLUME 7.7 fL (7.4-11.0); MONOCYTES # (AUTO) 0.8 x10^3/uL (0.3-0.8); MONOCYTES % (AUTO) 8.2 % (0.0-13.0); NEUTROPHILS # (AUTO) 6.4 x10^3/uL (2.2-4.8); NEUTROPHILS % (AUTO) 67.3 % (42.0-75.0); PLATELET COUNT 360 X10^3/uL (150.0-450.0); RED BLOOD COUNT 4.35 X10^6/uL (3.5-5.4); RED CELL DISTRIBUTION WIDTH 13.1 % (11.6-16.5); WHITE BLOOD COUNT 9.5 X10^3/uL (3.6-10.0)
[2019-07-20 06:33] LABS: ALANINE AMINOTRANSFERASE 44 Units/L (12-78); ALBUMIN 2.8 g/dL (3.4-5.0); ALKALINE PHOSPHATASE 52 Units/L (46-116); ASPARTATE AMINO TRANSFERASE 28 Units/L (15-37); BLOOD UREA NITROGEN 19 mg/dL (7-18); CARBON DIOXIDE 28.9 mmol/L (21-32); CHLORIDE 107 mmol/L (98-107); COR NA(FOR HYPERGLY) 143 mmol/L (136-145); CREATININE 1.08 mg/dL (0.55-1.02); SODIUM 141 mmol/L (136-145); TOTAL PROTEIN 6.8 g/dL (6.4-8.2); eGFR NON BLACK RACES 52 (>60)
[2019-07-20] MEDS: ZEBETA TAB 5 MG PO SCH (08:31)
[2019-07-20] MEDS: EFFEXOR XR 150 MG CAP PO SCH (08:32)
[2019-07-20] MEDS: CLARITIN PO SCH (08:32)
[2019-07-20] MEDS: NORVASC TAB 10 MG PO SCH (08:32)
[2019-07-20] MEDS: ZESTRIL TAB 10 MG PO SCH (08:32)
[2019-07-20] MEDS: ROBITUSSIN DM PO SCH ×2 (08:33→14:05)
[2019-07-20] MEDS: LEVAQUIN TAB 750 MG PO SCH (08:33)
[2019-07-20] MEDS: LOVENOX INJ 40 MG SYR SC SCH (08:34)
[2019-07-20] MEDS: ZIAC 5/6.25 MG PO SCH (08:47)
[2019-07-20] MEDS: PULMICORT NEB TX 0.5 MG NEB SCH (09:29)
[2019-07-20] MEDS: XOPENEX 1.25 MG/3 ML NEBULE NEB SCH ×2 (09:29→13:22)
[2019-07-20 12:58] VITALS: BP 164/70
== END 2019-07-20 14:10 ==
LOC: ER 15:58 → MED/SURG 15:58
PROVIDERS: ADMIT Internal Medicine; ATTEND Internal Medicine
DX: E11.65 Type 2 diabetes mellitus with hyperglycemia; R06.02 Shortness of breath; J18.9 Pneumonia, unspecified organism; I10 Essential (primary) hypertension; R53.1 Weakness; R41.82 Altered mental status, unspecified; R74.8 Abnormal levels of other serum enzymes; N28.9 Disorder of kidney and ureter, unspecified; R94.31 Abnormal electrocardiogram [ECG] [EKG]; E83.52 Hypercalcemia; D72.828 Other elevated white blood cell count; J45.41 Moderate persistent asthma with (acute) exacerbation; R94.4 Abnormal results of kidney function studies; Z79.899 Other long term (current) drug therapy; F01.50 Vascular dementia, unspecified severity, without behavioral disturbance, psychotic disturbance, mood disturbance, and anxiety; R26.89 Other abnormalities of gait and mobility
CPT/HCPCS: 36415; 36600; 70450; 71010; 71045; 71275; 80053; 80061; 82550; 82553; 82803; 82947; 83605; 83735; 83970; 84439; 84443; 84484; 85025; 85378; 85610; 87040; 87070; 87205; 93005; 94640; 94760; 96360; 96361; 96365; 96372; 96374; 96375; 97116; 97162; 97165; 97530; 97535; 99284; A4216; A4222; G0378; J1650; J1815; J1940; J1956; J2930; J3475; J7030; J7620; J7626